=== PATIENT | female | born 1995 | race Caucasian/White ===

== ENCOUNTER 2016-10-31 19:37 | Emergency (ER) | payer OTHER ==
[2016-10-31 19:49] VITALS: BP 134/90; PULSE 110; RESP 16; O2SAT 99
[2016-10-31 20:19] LABS: BASOPHILS % (AUTO) 0.3 % (0-3); EOSINOPHILS % (AUTO) 1.4 % (0-5); Mean Corpuscular Hemoglobin 28.6 pg (27.0-35.0); NEUTROPHILS % (AUTO) 69.2 % (40-74); Platelet Count 223 bil/L (150-400)
[2016-10-31 20:46] LABS: Magnesium 2.1 mg/dL (1.6-2.6)
--- NOTE | 2016-10-31 21:27 | ED.REPORT ---
HPI-Abd Pain F Under 40 Date of Service Oct 31, 2016 ED Provider: Dr. Richard Granados M.D. A 21 year old female with a history of pyelonephritis and ovarian cysts on Depo- Provera (15 months) presents to the ED with vaginal bleeding onset eight days ago. The bleeding began as spotting but became heavier over the past five days. The patient is now bleeding through a super tampon and a pad in 30 minutes, with clotting. The patient also reports RLQ abdominal pain, nausea, vomiting, lightheadedness, and decreased appetite. She has not had regular menstrual periods since beginning the Depo-Provera. Nursing Notes Stated Complaint: HEAVY BLEEDING/MENSTRUAL Chief Complaint: Female Abdominal Pain Nursing Notes Reviewed: Yes Allergies: Coded Allergies: Sulfa (Sulfonamide Antibiotics) (Verified Allergy, Severe, 10/31/16) cefprozil (Verified Allergy, Severe, 10/31/16) Scheduled Norgestimate-Ethinyl Estradiol (Ortho-Cyclen) 1 Each Tablet 1 EACH PO DAILY Scheduled PRN Ondansetron ODT (Ondansetron ODT) 8 Mg Tab.rapdis 8 MG PO QID PRN PRN For Nausea General Time Seen by MD: 21:26 Chief Complaint Vaginal bleeding Hx Obtained From: Patient Arrived By: Walk-in Sudden in Onset?: No Onset Occurred: More than a week ago... (8 days) Symptom Duration: Since onset Progression since Onset: Gradually worsening Location: : RLQ Quality: Painful Severity: Current: Moderate Severity: Maximum: Moderate Associated with: Reports: Nausea, Vomiting, Denies: Fever Sexual History / Control: Reports Depo-Provera Pertinent Negative: Relieved by nothing Recent Healthcare: No recent doctor visit Past Medical History Past Medical History Ovarian Cysts Pyelonephritis Otitis Media s/p left TM perforation Past Surgical History None reported Smoking History Unknown if Ever Smoker Social History Other Social History: Good social support Occupation Works at [employer] [place] Ambulatory Status Independent Review of Systems Review of Systems Note: + Decreased appetite Constitutional: Denies: Fever GI: Reports: Abdominal pain (RLQ), Nausea, Vomiting Female: Reports: Vaginal bleeding - abnl (Heavy, with clotting) Complete sys rev & neg: except as marked. Neurologic: Reports: Lightheaded Physical Exam Initial Vital Signs Vital Signs (First) Date Time Temp Pulse Resp B/P Pulse Ox O2 Delivery O2 Flow Rate FiO2 10/31/16 19:49 36.7 110 16 134/90 99 11/01/16 00:44 Room Air Initial VS: Reviewed Head / Eyes: Atraumatic, Normocephalic ENT: Conjunctiva normal, No scleral icterus Neck: Supple, Full range of motion Skin: Warm, Dry, No cyanosis Neurologic: Alert, Oriented, Nonfocal Psychiatric: Mood/affect normal, Behavior normal, Normal thought content General/Constitutional: Awake, Alert, No acute distress Respiratory / Chest: Breath sounds NL, Breath sounds = bilat, No respiratory distress Cardiovascular: Heart rate NL, Regular rhythm, Heart sounds NL Abdomen: Soft, No guarding Tenderness/Guarding/Rebound: Positive: Tender RLQ... (Minimal) Interpretation & Diagnostics URINE : Negative Lab Results Interpretation Result Diagram: 10/31/16201010/31/16 2011 Test 10/31/16 20:11 10/31/16 21:40 White Blood Count 7.2th/mm3 (3.8-10.1) Red Blood Count 4.47mil/mm3 (3.90-5.20) Hemoglobin 12.8g/dL (12.0-15.6) Hematocrit 38.0% (35.0-46.0) Mean Corpuscular Volume 85.0fL (81-100) Mean Corpuscular Hemoglobin 28.6pg (27.0-35.0) Mean Corpuscular Hemoglobin Concent 33.7% (32.0-37.0) Red Cell Distribution Width 12.6% (12.3-15.4) Platelet Count 223bil/L (150-400) Neutrophils (%) (Auto) 69.2% (40-74) Lymphocytes (%) (Auto) 22.8% (14-46) Monocytes (%) (Auto) 6.0% (4-12) Eosinophils (%) (Auto) 1.4% (0-5) Basophils (%) (Auto) 0.3% (0-3) Sodium Level 138mEq/L (134-144) Potassium Level 3.7mEq/L (3.5-5.2) Chloride Level 101mEq/L (97-108) Carbon Dioxide Level 24mmol/L (18-29) Blood Urea Nitrogen 8mg/dL (6-20) Creatinine 0.65mg/dL (0.57-1.00) Estimat Glomerular Filtration Rate 162mL/min (>59) Glucose Level 104mg/dL (60-99) Calcium Level 8.8mg/dL (8.5-10.1) Magnesium Level 2.1mg/dL (1.6-2.6) Total Bilirubin 0.2mg/dL (0.0-1.2) Aspartate Amino Transf (AST/SGOT) 19U/L (0-50) Alanine Aminotransferase (ALT/SGPT) 22U/L (0-32) Alkaline Phosphatase 72U/L (25-150) Total Protein 7.3g/dL (6.4-8.4) Albumin 4.6g/dL (3.4-5.0) Hold Bobby Top Tube Received (Received) Hold Urine Received (Received) Re-Eval/Medical Decision Med Decision/Clinical Course Med Decision/Clinical Course: 21-year-old female with heavy vaginal bleeding after many months of Depo-Provera. Discussed with Dr. Manning, and plan at this point to provide estrogen support to see we can terminate her bleeding. Begun with estradiol here 1 mg, followed by an Ortho-Cyclen back at three tabs daily for three days, followed by two tabs daily for three days, followed by one tablet daily for three days, then stop. They will see her in the office prior to terminating this course. Discharged in stable condition. No evidence of peritonitis on exam and no indication for advanced imaging at this point Source of Hx: Old records Re-Evaluation/Progress #1: Time of Eval: 22:05 Patient Status: Condition improved Re-Evaluation/Progress Note: Patient rechecked. She still feels unable to drink liquids. Re-Evaluation/Progress #2: Time of Eval: 23:40 Patient Status: Condition improved Re-Evaluation/Progress Note: Patient feels much improved and is ready to go home. Discussed with patient lab results, diagnosis, and plan for discharge. Follow-up and return to the ER instructions given. Patient agrees with plan for care and all questions were addressed. Consultation : Referral / Consult Name: Marizol Manning MD Consulted With: Primary care physician Call Returned at: 22:03 Business Professor: Agrees with eval, Agrees with plan Note: Recommends course of estrogen Counseled Regarding: Diagnosis, Lab results, Need for follow-up, When/why to return to ED Discharge & Departure Shift Change Sign-Out Response to Therapy: Improved Primary Impression: Dysfunctional uterine bleeding Additional Impression: Pelvic pain Disposition: Home Discharge Condition All VS Reviewed: Yes Condition: Improved Patient Instructions: Dysfunctional Uterine Bleeding (ED) Additional Instructions: Begin contraceptive pills three pills daily for three days then two pills daily for three days then one pill daily for three days then stop. Contact Dr. Manning's office tomorrow for follow-up in the next day or two. Return if any immediate issues, particularly fever, worsening pain, or any other new symptoms of concern. Referrals: Juju Levy (PCP) Sp Attestation Portions of this note were transcribed by Mariah Vivar. I, Dr. Granados, personally performed the history, physical exam, and medical decision-making; I reviewed and confirmed the accuracy of the information in the transcribed note. Signed by: Sp Ho, 11/01/2016, 00:00 copies to: Juju Levy Christopher W MD Oct 31, 2016 21:27 MARIAH VIVAR Oct 31, 2016 21:43
[2016-10-31] MEDS ORDERED: Ketorolac 15 mg/mL Inj IVPUSH ONE (22:10)
[2016-10-31] MEDS ORDERED: 0.9% Sodium Chloride 1,000 ML IV SCH (22:10)
[2016-10-31] MEDS ORDERED: Ondansetron 2 mg/mL 2 mL Inj IVPUSH ONE ×2 (22:10→23:00)
[2016-10-31] MEDS ORDERED: NORG1TAB6 PO (23:44)
[2016-10-31] MEDS ORDERED: _Ondansetron ODT 4 mg Tablet PO PRN (23:45)
[2016-10-31] MEDS ORDERED: ONDA8TAB10 PO (23:45)
[2016-11-01 00:44] VITALS: BP 122/74; PULSE 74; RESP 14; O2SAT 99
[2016-11-07] MEDS ORDERED: CITA10TA9 PO (14:03)
[2016-11-07] MEDS ORDERED: iron PO (14:04)
== END 2016-11-01 01:13 | disposition home or self-care (01) ==
LOC: SED 19:37
DX: N93.8 Other specified abnormal uterine and vaginal bleeding (principal); N83.209 Unspecified ovarian cyst, unspecified side; Z88.1 Allergy status to other antibiotic agents; Z88.2 Allergy status to sulfonamides
CPT/HCPCS: 36415; 80053; 81025; 83735; 85025; 96361; 96374; 96375; 96376; 99284; J1885; J2405; J7030

== ENCOUNTER → 2016-11-07 | Day surgery (SDC) | payer OTHER ==
[~2016-11-07] VITALS: Ht 175.3 cm; Wt 93.0 kg
[2016-11-07] VITALS (11 sets, daily range): BP systolic 112–126; BP diastolic 50–74; PULSE 68–107; RESP 15–21; O2SAT 97–100
[~2016-11-07] MED LIST: CITA10TA9 PO; Dexamethasone 4 mg/mL Inj IVPUSH PRN; Dexamethasone 4 mg/mL Inj ONE; EPHEDrine Sulfate 50 mg/mL Inj IVPUSH PRN; HYDROcodone-APAP 5-325 mg Tablet PO PRN; HYDROmorphone 1 mg/mL Inj IVPUSH PRN; Labetalol 5 mg/mL 4 mL Inj IV PRN; Lactated Ringer's 500 ML IV PRN; MetoCLOpramide 5 mg/mL 2 mL Inj IVPUSH PRN; MetoCLOpramide 5 mg/mL 2 mL Inj ONE; NORG1TAB6 PO; ONDA8TAB10 PO; Ondansetron 2 mg/mL 2 mL Inj IVPUSH PRN; Ondansetron 2 mg/mL 2 mL Inj ONE; Oxytocin 10 Unit/mL Inj ONE; Phenylephrine 10,000 mCg/mL Inj IVPUSH PRN; Propofol 10,000 mCg/mL 20 mL Inj ONE; fentaNYL-PF 50 mCg/mL 2 mL Inj IVPUSH PRN; iron PO
--- NOTE | 2016-11-07 10:57 | HP PRE OP ---
[address] [address] PREOPERATIVE HISTORY AND PHYSICAL PATIENT: PATY DAVIES : 1995 MR#: [id number] ADMIT: 11/07/2016 JOB ID: [id number] HISTORY OF PRESENT ILLNESS: The patient is a 21-year-old G 0, P 0, AB 0 single woman who works at [employer] in [place]. She described initiation of Depo-Provera therapy for contraception and ovary cyst control (had had a hemorrhagic cyst apparently) 1-/2 to 2 years ago, and mostly she has had uncommon bleeding since then until recently. The patient had light spotting on and off a couple weeks ago, then giving way to very heavy bleeding, about a week and a half ago, at heaviest times changing super tampon and pad every 30 minutes for at least 5-6 days. She also has had very significant constant cramping, nausea, etc. She went to the emergency department several days ago and was found to have hemoglobin of 12.8 on October 31, 2016. She had ultrasound on November 02, 2016 that demonstrated 8.1 x 4.0 x 4.0 cm uterus with 22 mm endometrial thickness consistent with suspected blood clot. There was no obvious fibroid or polyp, etc. There was also a small amount of complex fluid possibly around the right ovary (although was not identified). Ovaries were otherwise normal. Note that the patient was placed on Ortho Cyclen control pill to use three daily for three days, then two daily for three days then daily for 2 days and so on, and she has now done this for about five days and bleeding has finally slowed to protection change requirement every 2 hours as opposed to every 30 minute, although it is still significant, still with significant cramping. It was noted also that follow up hemoglobin checked on November 05, 2016 was 9.0, very significant drop. The patient was referred to my office for WAITSTAFF consultation in light of the recent menorrhagia and dysmenorrhea, increased endometrial thickness and drop in hemoglobin. I saw her on November 06, 2016, and noted moderate bleeding, the patient describes some dizziness and fatigue, and ultrasound in my office demonstrated some uterine enlargement with intrauterine complex fluid collection up to 3.67 cm in greatest dimension, consistent with hemorrhagic contents, i.e., hematometra. Uterus was tender likely due to the hematometra and ongoing bleeding. I explored with the patient options of further observation now the bleeding has slowed somewhat and continuation of control pills and so on versus possible hysteroscopy/D and C for the purpose of evacuating the uterus and determining the true nature of the intrauterine contents although suspect hemorrhage or clot. She has very definitively requested surgical procedure as she felt so poorly and she has been concerned during the ongoing bleeding that is still significant with the hematometra. Her request is reasonable. She has understood risks of surgery to include bleeding, infection, injury to the cervix and uterus, with potential perforation and potential need for laparotomy for uterine repair if significant perforation and bleeding were to occur, the anesthetic risks, etc. She had all questions answered. There is no guarantee that a complication would not occur and no guarantee that bleeding will cease although likely it will improve with procedure and she has signed informed consent for surgery of her own free will. In summary then, this patient will be admitted to [facility] on November 07, 2016 for possible operative hysteroscopy and D and C procedure (suction plus-minus gentle sharp curettage) on November 07, 2016. PHYSICAL EXAMINATION: On admission, weight 206 pounds. Blood pressure 122/72. Neck: No thyromegaly. Lungs: Clear to auscultation and percussion. Heart: Regular in rate and rhythm. Abdomen: Increased abdominal wall thickness. No surgical scarring. Pelvic examination: Vulva, vagina and cervix without any obvious epithelial abnormality. Moderate bleeding. Uterus moderately tender, mildly enlarged, no obvious other mass effect. IMPRESSION: 1. Hematometra associated with significant menorrhagia and dysmenorrhea of unclear etiology, suspect dysfunctional uterine bleeding although the patient has been on Depo-Provera during the past year and a half or two. Potential ovulatory cycle. Negative test. Using control pill multiple per day with some reduction in bleeding. Although remaining significant. For surgical evaluation/intervention. 2. Recently utilizing control pills, currently two per day. 3. Depo-Provera use in the past 1-1/2 to 2 years. 4. Potential ruptured ovarian cyst recently on the basis of ultrasound findings of complex fluid near the right ovary although no obvious cyst seen. History of apparent ruptured or hemorrhagic cysts. 5. Significant anemia, with hemoglobin 12.8, and then five days later on November 05, 2016 9.0 related to ongoing significant menstrual blood loss. Using iron supplement daily. 6. Increased weight. 7. Depression and anxiety, using citalopram. 8. Surgical history: a. Ear tubes removed at age 1. b. Ear surgery preparatory to graft. c. 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 d. Arm surgery related to fracture. 9. Medication allergies (CEFZIL), stopped breathing related to throat closing down per patient report, also hives. Note that hives also occur with SULFA. She has also used other antibiotics although she cannot remember which ones. 10. Family history of hypertension (parents), thyroid disease (mother), and thyroid cancer (mother). 11. Prior mammogram a couple of years ago ?, details unknown. PLAN: The patient will be admitted to [facility] on November 07, 2016 for possible operative hysteroscopy and D and C procedure (suction plus-minus sharp curettage) for evaluation and management of ongoing menometrorrhagia, with thickened endometrium/hematometra, and significant dysmenorrhea. ANDREA
[2016-11-07] MEDS: Lactated Ringer's 1,000 ML IV SCH ×5 (13:37→18:05)
[2016-11-07 14:29] LABS: BASOPHILS % (AUTO) 0.2 % (0-3); EOSINOPHILS % (AUTO) 0.9 % (0-5); MONOCYTES % (AUTO) 5.8 % (4-12); Mean Corpuscular Hemoglobin 28.5 pg (27.0-35.0); Mean Corpuscular Volume 87.9 fL (81-100); NEUTROPHILS % (AUTO) 70.1 % (40-74); Platelet Count 205 bil/L (150-400)
--- NOTE | 2016-11-07 15:10 | PCM.HPANE ---
Patient Data Surgeon Admitting Provider: Attending Provider:Braydon Angelo MD Primary Care Physician:Juju Levy Other Provider:Julio Gale Anesthesia Reason for Visit Menorrhagia, Endometrial Thickening Ht/WT & BMI Height (Feet): 5 Height (Inches): 9 Weight (Kilograms): 93 Body Mass Index 30.00 Allergies Coded Allergies: Sulfa (Sulfonamide Antibiotics) (Verified Allergy, Severe, 10/31/16) cefprozil (Verified Allergy, Severe, 10/31/16) Past Anesthesia History Anesthesia History: Denies:: Anesthesia Reactions Diabetes History Hx Diabetes?: No MRSA MRSA: No Medications Home Meds Incl Beta Aaron: No Active Scripts Ondansetron ODT 8 Mg Tab.rapdis8 Mg PO QID PRN For Nausea #10 TABLET Prov:Richard Granados MD 10/31/16 Norgestimate-Ethinyl Estradiol (Ortho-Cyclen)1 Each Tablet1 Each PO DAILY #1 PACKET Prov:Richard Granados MD 10/31/16 Reported Medications [iron] No Conflict Check10 Mg PO DAILY 11/07/16 Citalopram 10 Mg [id number] Mg PO DAILY Ref 0 11/07/16 History History of ENT Problems?: No HEENT History: Positive for:: Sinus Problem (seasonal allergies) Hx of Heart Problems?: No Cardiovascular History: Denies:: Congestive Heart Failure Hypertension Hx of Respiratory Problem?: No Respiratory History: Denies:: Tuberculosis Hx Neurologic Problems?: No Hx of GI Problems?: No Hx of Problems?: Yes Female Hx: Positive for:: Currently (neg preg test) Skin History: Denies:: History Skin Disorders? Pressure Ulcers Hx Musculoskeletal Problems?: No Musculoskeletal History: Positive for:: Musculoskeletal Trauma Hx Surgeries?: Yes (elbow, multiple inner ear) Hx Any Other Health Problems?: No Other History: Denies:: Cancer Thyroid Disease Hx Diabetes: No Hx Alcohol Use: Yes (rare)Hx Substance Use: No Smoking Status: Unknown if Ever Smoker Have You Smoked inLast 12 mo: No Stop/Bang Treated for Sleep Apnea?: No Do You Have a CPAP Machine?: No S-Snoring: Do You Snore Loudly: No T-Tired: feel tired, fatigued: No O-Obsered: Observed not breath: No P-Blood Pressure: treated: No B- Body Mass Index > 35 kg/m2: No A- Age over 50: No N- Neck Large Circumference: No G- Gender Male: No NAVYA Total Score: 0 NAVYA Risk Assessment: Low Risk, <3 Yes Risk Assessment Category Category 1A: Patient has history of documented sleep apnea, and HAS NOT received any narcotic, sedative or anesthesia administration during this stay. Category 1B: Patient has history of documented sleep apnea, and HAS received any narcotic , sedative or anesthesia administration during this stay Category 2: Patient has SUSPECTED Obstructive Sleep Apnea, and HAS received any narcotic , sedative or anesthesia administration during this stay. Category 3: Patient has SUSPECTED Obstructive Sleep Apnea and HAS NOT received narcotic, sedative or anesthesia administration during this stay. Category 4: Outpatient in Procedural Areas with known sleep apnea or who screen positive for High Risk via the STOP/BANG questionnaire. Exam Exam Vital Signs Vital Signs Date Time Temp Pulse Resp B/P Pulse Ox O2 Delivery O2 Flow Rate FiO2 11/07/16 13:58 36.5 98 16 120/74 100 Room Air General Appearance: Oriented X3 HEENT/AIRWAY: MP 2 Lungs: Normal Air Movement Heart: Regular Rate/Rhythm Meds/Labs/Diagnostics Admission Meds Current Medications Lactated Ringer's (Lr) 1,000 ml @ 100 mls/hr Q10H IV Last administered on t 13:37; Start 11/07/16 at 06:00 Labs Test 11/07/16 14:20 White Blood Count 5.5th/mm3 (3.8-10.1) Red Blood Count 2.81mil/mm3 (3.90-5.20) Hemoglobin 8.0g/dL (12.0-15.6) Hematocrit 24.7% (35.0-46.0) Mean Corpuscular Volume 87.9fL (81-100) Mean Corpuscular Hemoglobin 28.5pg (27.0-35.0) Mean Corpuscular Hemoglobin Concent 32.4% (32.0-37.0) Red Cell Distribution Width 13.5% (12.3-15.4) Platelet Count 205bil/L (150-400) Neutrophils (%) (Auto) 70.1% (40-74) Lymphocytes (%) (Auto) 22.8% (14-46) Monocytes (%) (Auto) 5.8% (4-12) Eosinophils (%) (Auto) 0.9% (0-5) Basophils (%) (Auto) 0.2% (0-3) Plan Impression Patient chart reviewed, patient interviewed and anesthestic plan with risks, benefits, and alternatives discussed, and informed consent obtained. NPO Status: 11/06/161999 ASA Physical Status: ASA1 Normal Healthy Anesthetic Plan: GA Bene/Risks/Altern/Consents: Yes HP Complete Prior to Induction: Yes Anthony Robledo MD Nov 07, 2016 15:09
--- NOTE | 2016-11-07 17:11 | PCM.ANEP2 ---
Post Anesthesia Evaluation ASA/CMS Post Anesthesia VS in Patient's Normal Range?: Yes Resp Stable; Airway Patent?: Yes CV Function & Hydration Stable: Yes Mental Status Recovered?: Yes Pain control Satisfactory?: Yes N/V Control Satisfactory?: Yes Anthony Robledo MD Nov 07, 2016 17:11
--- NOTE | 2016-11-07 17:11 | PCM.ANEP1 ---
Post Anesthesia Phase 1 PACU Phase 1 Assessment Vital Signs Vital Signs Date Time Temp Pulse Resp B/P Pulse Ox O2 Delivery O2 Flow Rate FiO2 11/07/16 17:07 105 17 119/62 98 Room Air 11/07/16 17:00 104 19 115/57 98 Room Air 11/07/16 16:55 104 21 115/55 98 Room Air 11/07/16 16:50 105 20 113/64 97 Room Air 11/07/16 16:45 37.3 107 19 112/50 99 Room Air 11/07/16 13:58 36.5 98 16 120/74 100 Room Air Anesthetic Administered: GA Level of Alertness: Awake, talking Pain: No Nausea or Vomiting: No Oxygen Delivery: Room Air Lungs: Normal Air Movement Anthony Robledo MD Nov 07, 2016 17:11
--- NOTE | 2016-11-09 00:34 | OP ---
[address] [address] OPERATIVE REPORT PATIENT: PATY DAVIES : 1995 MR#: [id number] ADMIT: 11/07/2016 JOB ID: [id number] DATE OF SURGERY: 11/07/2016 SURGEON: Braydon Angelo MD. WILDLIFE TECHNICIAN: None. ANESTHESIA: General. PREOPERATIVE DIAGNOSIS(ES): 1. Hematometra. 2. Menometrorrhagia. 3. Blood loss anemia. 4. Dysmenorrhea. POSTOPERATIVE DIAGNOSIS(ES): 1. Hematometra. 2. Menometrorrhagia. 3. Blood loss anemia. 4. Dysmenorrhea. PROCEDURES PERFORMED: Suction and sharp curettage/dilation and curettage. INDICATIONS FOR SURGERY: This patient has had significant recent heavy and irregular bleeding with cramping, finding of progressive anemia (hemoglobin from 12.8 to 9.0 to 8.0) and also with sonogram finding of hematometra. She requested D and C procedure and she was consented for D and C and hysteroscopy (if appropriate to do) for diagnostic and therapeutic purposes, understanding limitations, benefits and risks, pros and cons. FINDINGS AT SURGERY: Uterus sounded to 10 cm. Cervix was already dilated up to about 10 mm, and cervix was soft. There appeared to be blood and blood clots within the uterine cavity, yet without excessive tissue finding. Note that at procedure's close, uterine lining palpated clean, there was scant bleeding occurring, and it is anticipated that patient will do very well with reduction or cessation of bleeding that had been occurring preoperatively. We will await pathology report to ensure no histologic abnormality, none suspected. Note that having previously used Depo-Provera and with this significant bleeding problem developing, we will likely recommend ongoing control pill use once daily, probably in cycling fashion. PROCEDURE IN DETAIL: The patient was placed in supine position on the operating table and general anesthesia was induced. She was then very carefully repositioned into the low dorsal lithotomy position and prepped and draped in the usual sterile manner. A weighted speculum was placed posteriorly and a tenaculum on the anterior cervical lip and another on the posterior cervical lip, and the uterus was sounded to 10 cm. Cervix was already noted to be essentially dilated up to 10 mm and size 10 straight suction tip was selected. Suction curettage was then accomplished with return of blood and clots, and no significant amount of tissue most likely. Then, no additional blood or clots or tissue recovered, and gentle sharp curettage demonstrated clean endometrial lining. Bleeding was minimal. It was determined that hysteroscopy would not likely add any additional useful information and it would also be difficult due to point of cervical dilatation as noted at the onset of the procedure. Thus, intrauterine procedure was thus complete. All instruments removed from the uterus, each tenaculum was removed from the cervix, and all instruments and sponges removed from the vaginal area. Instrument and sponge counts were all found to be correct. Patient was returned to the supine position, awakened, and taken to the recovery room. ESTIMATED BLOOD LOSS: 100 cc (which included the blood and clots within the uterine cavity, i.e. hematometra). COMPLICATIONS: None. PROGNOSIS: Good for surgical recovery. ANDREA
--- NOTE | 2016-11-09 13:51 | PATH ---
SURGICAL PATHOLOGY Attending Physician:Braydon Angelo M.D CASE STATUS: Signed Out PATIENT NAME: PATY DAVIES PID: [id number] : 1995 DATE COLLECTED:11/07/2016 00:00 SPECIMEN: Uterine Contents CLINICAL HISTORY: MENORRHAGIA, ENDOMETRIAL THICKENING 1). UTERINE CONTENTS FINAL DIAGNOSIS: 1.UTERINE CONTENTS: SMALL ENDOMETRIAL POLYP. ABUNDANT ENDOMETRIUM WITH FEATURES CONSISTENT WITH EXOGENOUS HORMONE THERAPY ( CONTROL PILLS). NO EVIDENCE OF MALIGNANCY OR HYPERPLASIA. ICD10 CODE N92.6 GROSS DESCRIPTION: The specimen is received in one formalin filled container labeled with the patient's name, labeled "uterine contents" and consists of multiple portions of tissue and clotted blood which aggregate to 4.5 x 4.0 x 1.5 CM. No grossly recognizable parts are observed the specimen is entirely submitted in 7 cassettes. 11/08/2016 DAC MICRO DESCRIPTION: See diagnosis. ICD-9 CODES: CPT CODES: 1: 44134 Electronically Signed Out Carlito Pike MD [facility] Pathology [facility] [address], [place] [address] Technical component performed at [facility], [address] [place] [address] Ave[address], [place], [address]
== END | disposition home or self-care (01) ==
LOC: SAS 13:30
PROVIDERS: ATTEND Obstetrics & Gynecology
DX: N84.0 Polyp of corpus uteri (principal); N92.1 Excessive and frequent menstruation with irregular cycle; D50.9 Iron deficiency anemia, unspecified; N94.6 Dysmenorrhea, unspecified
CPT/HCPCS: 36415; 58120; 85025; 86850; J1100; J2405; J2590; J2765; J7120